=== PATIENT | male | born 1995 | race Caucasian/White ===

== ENCOUNTER 2017-06-06 23:44 | Emergency (ER) | payer BC, OTHER ==
--- NOTE | 2017-06-07 00:04 | EDPHY ---
H & P Stated Complaint: abd pain, R flank pain, diarrhea HPI/ROS: HPI The patient presents with abdominal and flank pain which has been present since this morning. Last night, he went to a concert, drink alcohol and subsequently vomited. He awoke this morning, and had an episode of diarrhea. He noted that his flanks bilaterally were achy. He was able to manage the pain for most of the day, however about 1 hour ago he developed sharp pain in his right upper quadrant which then radiated to his right flank. This is been constant since it started and is what brought him into the emergency department. He was able to eat without difficulty throughout the day today. He has no prior history of similar pain.. REVIEW OF SYSTEMS Constitutional: No fever, no chills. Eyes: No discharge. ENT: No sore throat. Cardiovascular: No chest pain, no palpitations. Respiratory: No cough, no shortness of breath. Gastrointestinal: See HPI Genitourinary: No hematuria. Musculoskeletal: No back pain. Skin: No rashes. Neurological: No headache. 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 Soc Hx: College student, alcohol use occasionally PHYSICAL General Appearance: Alert, no distress Eyes: Pupils equal and round no pallor or injection ENT, Mouth: Mucous membranes moist Respiratory: There are no retractions, lungs are clear to auscultation Cardiovascular: Regular rate and rhythm Gastrointestinal: Abdomen is soft with tenderness in the right upper quadrant without rebound or guarding no masses, bowel sounds normal, no flank or CVA tenderness bilaterally Neurological: A&O, moves all extremities Skin: Warm and dry, no rashes Musculoskeletal: Neck is supple non tender Extremities: symmetrical, full range of motion Psychiatric: Patient is oriented X 3, there is no agitation Source: Patient Exam Limitations: No limitations - Personal History Current Tetanus/Diphtheria Vaccine: Yes Tetanus Vaccine Date: 2009 - Medical/Surgical History Hx Asthma: No Hx Chronic Respiratory Disease: No Hx Diabetes: No Hx Cardiac Disease: No Hx Renal Disease: No Hx Cirrhosis: No Hx Alcoholism: No Hx HIV/AIDS: No Hx Splenectomy or Spleen Trauma: No Other PMH: denies - Social History Smoking Status: Never smoked Constitutional: Initial Vital Signs Temperature (C) 36.9 C 06/06/17 23:46 Heart Rate 98 06/06/17 23:46 Respiratory Rate 18 06/06/17 23:46 Blood Pressure 156/99 H 06/06/17 23:46 O2 Sat (%) 97 06/06/17 23:46 O2 Delivery Mode Room Air Allergies/Adverse Reactions: Penicillins Allergy (Verified 06/06/17 23:49) Hives Home Medications: Medication Instructions Recorded NK [No Known Home Meds] 10/19/15 Medical Decision Making Procedures: Bedside limited abdominal Ultrasound- performed and interpreted by me. Indication: Right upper quadrant abdominal pain Findings: Decompressed normal-appearing gallbladder without any gallstones, no pericholecystic fluid, wall is slightly thick but decompressed Impression: No sonographic evidence of cholecystitis or cholelithiasis Differential Diagnosis: 21-year-old male who presents with right-sided upper abdominal and flank pain for the last 1 day. Differential diagnosis includes cholelithiasis, cholecystitis, gastritis, pancreatitis, pyelonephritis, ureterolithiasis. In the emergency department, labs were checked and were all unremarkable except for a mild leukocytosis. Bedside right upper quadrant ultrasound was performed which showed no evidence of cholecystitis or cholelithiasis. The patient felt well enough to go home and will be discharged. We did discuss return precautions for appendicitis including worsening pain, vomiting, fever. - Data Points Laboratory Results: Laboratory Results 06/07/17 00:06 06/07/17 00:06 06/07/17 06/07/17 06/07/17 00:06 00:06 00:06 WBC 11.16 10^3/uL H 10^3/uL (3.80-9.50) RBC 5.80 10^6/uL 10^6/uL (4.40-6.38) Hgb 15.3 g/dL g/dL (13.7-17.5) Hct 46.3 % % (40.0-51.0) MCV 79.8 fL L fL (81.5-99.8) MCH 26.4 pg L pg (27.9-34.1) MCHC 33.0 g/dL g/dL (32.4-36.7) RDW 12.9 % % (11.5-15.2) Plt Count 240 10^3/uL 10^3/uL (150-400) MPV 10.7 fL fL (8.7-11.7) Neut % (Auto) 53.6 % % (39.3-74.2) Lymph % (Auto) 34.7 % % (15.0-45.0) [place] % (Auto) 8.2 % % (4.5-13.0) Eos % (Auto) 2.7 % % (0.6-7.6) Baso % (Auto) 0.3 % % (0.3-1.7) Nucleat RBC Rel Count 0.0 % % (0.0-0.2) Absolute Neuts (auto) 5.99 10^3/uL 10^3/uL (1.70-6.50) Absolute Lymphs (auto) 3.87 10^3/uL H 10^3/uL (1.00-3.00) Absolute Monos (auto) 0.91 10^3/uL H 10^3/uL (0.30-0.80) Absolute Eos (auto) 0.30 10^3/uL 10^3/uL (0.03-0.40) Absolute Basos (auto) 0.03 10^3/uL 10^3/uL (0.02-0.10) Absolute Nucleated RBC 0.00 10^3/uL 10^3/uL (0-0.01) Immature Gran % 0.5 % % (0.0-1.1) Immature Gran # 0.06 10^3/uL 10^3/uL (0.00-0.10) Sodium 145 mEq/L H mEq/L (134-144) Potassium 3.6 mEq/L mEq/L (3.5-5.2) Chloride 101 mEq/L mEq/L (97-110) Carbon Dioxide 28 mEq/l mEq/l (22-31) Anion Gap 16 mEq/L mEq/L (8-16) BUN 12 mg/dL mg/dL (7-23) Creatinine 1.0 mg/dL mg/dL (0.7-1.3) Estimated GFR > 60 Glucose 99 mg/dL mg/dL (70-100) Calcium 10.0 mg/dL mg/dL (8.5-10.4) Total Bilirubin 0.8 mg/dL mg/dL (0.1-1.4) AST 25 IU/L IU/L (17-59) ALT 43 IU/L IU/L (21-72) Alkaline Phosphatase 84 IU/L IU/L (38-126) Total Protein 8.1 g/dL g/dL (6.3-8.2) Albumin 4.4 g/dL g/dL (3.5-5.0) Lipase 57 IU/L IU/L (23-300) Urine Color PALE YELLOW Urine Appearance CLEAR Urine pH 7.0 (5.0-7.5) Ur Specific [place] 1.004 (1.002-1.030) Urine Protein NEGATIVE (NEGATIVE) Urine Ketones NEGATIVE (NEGATIVE) Urine Blood NEGATIVE (NEGATIVE) Urine Nitrate NEGATIVE (NEGATIVE) Urine Bilirubin NEGATIVE (NEGATIVE) Urine Urobilinogen NEGATIVE EU EU (0.2-1.0) Ur Leukocyte Esterase NEGATIVE (NEGATIVE) Urine Glucose NEGATIVE (NEGATIVE) Departure - Departure Disposition: Home, Routine, Self-Care Clinical Impression: Right sided abdominal pain Condition: Good Instructions: Acute Abdominal Pain (ED) Additional Instructions: You should please return to the emergency department if you develop any worsening right-sided abdominal pain, vomiting, fever. These symptoms could be a sign of appendicitis. Otherwise, make sure to drink plenty of fluids and get good rest. You can take Tylenol as needed for the pain. Referrals: DOMENICA Santillan,. [Clinic] - As per Instructions
[2017-06-07 00:51] LABS: PLATELET COUNT 240 10^3/uL (150-400)
[2017-06-07 01:32] VITALS: BP 126/83; PULSE 73; RESP 16; TEMP 98.1; O2SAT 95
== END 2017-06-07 01:31 | disposition home or self-care (01) ==
DX: R10.11 Right upper quadrant pain (principal)

== ENCOUNTER 2018-01-13 22:49 | Emergency (ER) | payer OTHER ==
[2018-01-13] MEDS ORDERED: IBUPROFEN 200 MG TAB PO ONE (23:00)
[2018-01-13] MEDS ORDERED: ACETAMINOPHEN 500 MG TAB PO ONE (23:00)
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
[2018-01-14 00:14] VITALS: BP 133/85
== END 2018-01-14 00:16 | disposition home or self-care (01) ==
LOC: EDUNIT#
PROC: 0HQ1XZZ Repair Face Skin, External Approach (ICD-10-PCS; principal; 2018-01-13)
DX: S01.81XA Laceration without foreign body of other part of head, initial encounter (principal); V13.9XXA Unspecified pedal cyclist injured in collision with car, pick-up truck or van in traffic accident, initial encounter; Y92.410 Unspecified street and highway as the place of occurrence of the external cause

== ENCOUNTER → 2018-09-13 | Outpatient (CLI) | payer BC | LOC: GIMAGING 09:50 | DX: M50.83 Other cervical disc disorders, cervicothoracic region (principal) | CPT/HCPCS: 72050-PO ==

== ENCOUNTER 2018-09-15 11:55 | Emergency (ER) | payer SELFPAY ==
--- NOTE | 2018-09-15 12:14 | EDPHY ---
H & P Stated Complaint: lightheaded, neck pain Time Seen by Provider: 09/15/18 12:13 HPI/ROS: HPI: This is a 22-year-old male who presents with Chief Complaint: Headache, vision changes Location: Neck and lower head Quality: Pain Duration: Several days Signs and Symptoms: no fever, no nausea, no vomiting, no photophobia, no noise sensitivity, no neck stiffness, no ear pain, no tinnitus, no nasal congestion, no sinus pressure, no weakness, no radiation, no aura Timing: Gradually worse Severity: [id number] Context: Patient presents from [facility] with complaints of headache, vision changes, word-finding difficulty with normal neuro exam per the nurse practitioner. On 09/13/2018 he was seen at the [facility] urgent care clinic and diagnosed with a cervical strain and given Flexeril. 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 Patient reports that after he was seen at [place] he took Flexeril for approximately 3 doses with relief of his neck and shoulder discomfort but then he started to experience headache that started at the base of his neck and went up both sides of his temples. He reports that he was looked down at his paper while at work and it would be blurry. He he reports no actual trauma or injury. He has no fever, vomiting. Yesterday at work he felt slightly dizzy and had mild word-finding difficulties. No word-finding difficulties today. Modifying Factors: Flexeril Comment: ROS: A comprehensive 10 system review of systems is otherwise negative aside from elements mentioned in the history of present illness. MEDICAL/SURGICAL/SOCIAL HISTORY: Medical history: Generally healthy. Does not take any regular medications. Surgical history: Denies Social history: Daily marijuana user. Family history noncontributory. CONSTITUTIONAL: Well-developed and well-nourished young adult white male, awake and alert, no obvious distress HEENT: Atraumatic and normocephalic. NECK: supple, no midline tenderness, flexion 45 degrees, extension 45 degrees, right and left lateral flexion 45 degrees. No meningismus. Cardiovascular: Normal S1/S2, regular rate, regular rhythm, without murmur rub or gallop. PULMONARY/CHEST: Symmetrical and nontender. no crepitus. Clear to auscultation bilaterally. Good air movement. No accessory muscle usage. ABDOMEN: Soft, nondistended, nontender, no ecchymosis. EXTREMITIES: 2/2 pulses, strength 5/5, DIP/PIP/MCP flexion/extension intact with good light touch sensation. no deformities, no clubbing, no cyanosis or edema. NEUROLOGICAL: no focal neuro deficits. GCS 15. Light touch sensation intact. Cranial nerves 2-12 grossly intact. Normal [id number] test. Normal heel-to -mir test. Normal Romberg testing. SKIN: Warm and dry, no erythema. no rash. Good capillary refill. Source: Patient, RN/MD Exam Limitations: No limitations - Personal History Current Tetanus/Diphtheria Vaccine: Yes Current Tetanus Diphtheria and Acellular Pertussis (TDAP): Yes Tetanus Vaccine Date: 2009 - Medical/Surgical History Hx Asthma: No Hx Chronic Respiratory Disease: No Hx Diabetes: No Hx Cardiac Disease: No Hx Renal Disease: No Hx Cirrhosis: No Hx Alcoholism: No Hx HIV/AIDS: No Hx Splenectomy or Spleen Trauma: No Other PMH: denies - Social History Smoking Status: Never smoked Constitutional: Initial Vital Signs Temperature (C) 37 C 09/15/18 11:59 Heart Rate 117 H 09/15/18 11:59 Respiratory Rate 16 09/15/18 11:59 Blood Pressure 162/109 H 09/15/18 11:59 O2 Sat (%) 95 09/15/18 11:59 O2 Delivery Mode Room Air Allergies/Adverse Reactions: Penicillins Allergy (Verified 09/15/18 11:59) Hives Home Medications: Medication Instructions Recorded Acet/Caffeine/Buta Fioricet 1 each PO Q6 PRN #12 tab 09/15/18 [Fioricet (*)] Cyclobenzaprine 09/15/18 Finasteride 09/15/18 Medical Decision Making - Diagnostics Imaging Results: Imaging Impressions Head CT 09/15/18 12:20 Impression: Normal brain. No intracranial hemorrhage, mass, or white matter disease. Findings discussed with Emergency Department physician accounts payable assistant, Dorie Aguirre on 09/15/2018, 12:52. Cervical Spine CT 09/15/18 12:21 Impression: 1. No acute fracture or soft tissue swelling. 2. If the patient has persistent pain or neurologic deficits, consider cervical spine MRI. Findings discussed with Emergency Department physician accounts payable assistant, DEISI Moore on September 15, 2018 at 1252 hours. ED Course/Re-evaluation: Vital signs reviewed and show mild tachycardia. IV access and head CT and cervical CT imaging ordered Patient given 1 L normal saline, IV Decadron, IV Toradol, IV Reglan and IV Benadryl 1250: Called by Radiology, Dr. Truong, who reports head CT scan shows no acute intracranial process. Cervical CT scan shows no acute cervical process and no degenerative changes. Reassessed patient who reports 75% improvement in symptoms. I do not feel that this is related to stroke in fact related to a tension-type headache. I gave him a referral to Neurology with a prescription for Fioricet. This patient was seen under the supervision of my primary supervising physician. I evaluated care for this patient independently. Discussed this patient with Dr. Hughes who did not see the patient. Differential Diagnosis: Headache including but not limited to subarachnoid hemorrhage, migraine headache , tension headache and infectious causes such as meningitis, pharyngitis and sinusitis. - Data Points Medications Given: Discontinued Medications Dexamethasone (Decadron Injection) 10 mg IVP EDNOW ONE Stop: 09/15/18 12:21 Last Admin: 09/15/18 13:02 Dose: 10 mg Diphenhydramine HCl (Benadryl Injection) 25 mg IVP EDNOW ONE Stop: 09/15/18 12:21 Last Admin: 09/15/18 13:00 Dose: 25 mg Sodium Chloride (Ns) 1,000 mls @ 0 mls/hr IV ONCE ONE; Wide Open PRN Reason: Protocol Stop: 09/15/18 12:21 Last Admin: 09/15/18 12:59 Dose: 1,000 mls Ketorolac Tromethamine (Toradol) 30 mg IVP EDNOW ONE Stop: 09/15/18 12:21 Last Admin: 09/15/18 13:01 Dose: 30 mg Metoclopramide HCl (Reglan Injection) 10 mg IVP EDNOW ONE Stop: 09/15/18 12:21 Last Admin: 09/15/18 13:01 Dose: 10 mg Departure - Departure Disposition: Home, Routine, Self-Care Clinical Impression: Tension-type headache Qualifiers: Headache chronicity pattern: acute headache Intractability: not intractable Qualified Code(s): G44.209 - Tension-type headache, unspecified, not intractable Condition: Good Instructions: Tension Headache (ED) Additional Instructions: Consume a minimum of 8-10 glasses of water or electrolyte fluid replacement drinks that include Gatorade, Powerade, Pedialyte. Please practice proper ergonomic stay and stretching exercises. Please reduce stress as much as possible. Take Tylenol 650 mg every 4 hours and/or Ibuprofen 600 mg every 8 hours with food as needed for pain. Use Fioricet every 6 hours as needed for severe/break through pain. Establish care with Neurology in the next 1-2 weeks. Return to the ER immediately if you have progressive headaches, neurologic deficits, gait abnormality, visual disturbance, slurred speech, or any other symptom that concerns you. Referrals: Mark Adams DO [Medical Doctor] - As per Instructions Prescriptions: Acet/Caffeine/Buta Fioricet [Fioricet (*)] 1 each PO Q6 PRN #12 tab PRN Reason: Headache
[2018-09-15] MEDS ORDERED: KETOROLAC 30 MG/1 ML SDV IVP ONE (12:20)
[2018-09-15] MEDS ORDERED: METOCLOPRAMIDE 10 MG/2 ML VIAL IVP ONE (12:20)
[2018-09-15] MEDS ORDERED: DEXAMETHASONE 10 MG/ML VIAL IVP ONE (12:20)
[2018-09-15] MEDS ORDERED: NS 1,000 ML IV ONE (12:20)
[2018-09-15 13:52] VITALS: BP 135/88
== END 2018-09-15 14:04 | disposition home or self-care (01) ==
DX: G44.209 Tension-type headache, unspecified, not intractable (principal); E86.9 Volume depletion, unspecified; M54.2 Cervicalgia; Z88.0 Allergy status to penicillin
CPT/HCPCS: 96374; J1100; J1200; J1885; J2765

== ENCOUNTER → 2018-10-18 | Outpatient (CLI) | payer OTHER | LOC: FIMAGING 16:24 | PROVIDERS: ATTEND Family Medicine | DX: N50.812 Left testicular pain (principal) ==